=== PATIENT | female | born 1960 | race Caucasian/White ===

== ENCOUNTER 2018-04-09 12:26 | Outpatient (CLI) | payer MEDICAID ==
[~2018-04-09 12:26] MED LIST: BAC10T PO; CARI350T PO; HYDR-4383 PO; HYDR2TAB28 PO; LISI40TA4 PO; METH-603 PO; MUCIN PO; OMEP20TA23 PO; RISP0.2555 PO
[2018-04-09 13:42] LABS: BASOPHILS # (AUTO) 0.1 X10'3 (0-0.2); BASOPHILS % (AUTO) 1.3 % (0-1); EOSINOPHILS # (AUTO) 0.2 X10'3 (0-0.9); EOSINOPHILS % (AUTO) 2.7 % (0-6); HEMATOCRIT 38.6 % (35.0-45.0); HEMOGLOBIN 12.4 g/dl (12.0-16.0); LYMPHOCYTES # (AUTO) 1.4 X10'3 (1.1-4.8); LYMPHOCYTES % (AUTO) 19.9 % (21-51); MEAN CORPUSCULAR HEMOGLOBIN 27.3 PG (27.0-31.0); MEAN CORPUSCULAR HGB CONC 32.2 % (33.0-36.5); MEAN CORPUSCULAR VOLUME 84.8 FL (78-98); MONOCYTES # (AUTO) 0.4 X10'3 (0-0.9); MONOCYTES % (AUTO) 6.3 % (2-12); NEUTROPHILS # (AUTO) 4.8 X10'3 (1.8-7.7); NEUTROPHILS % (AUTO) 69.8 % (42-75); RED BLOOD COUNT 4.55 X10'6 (4.20-5.60); RED CELL DISTRIBUTION WIDTH 13.5 % (11.5-14.5); WHITE BLOOD COUNT 6.8 X10'3 (4.5-11.0)
[2018-04-09 14:04] LABS: PARTIAL THROMBOPLASTIN TIME 31 SECONDS (22-32); PROTHROMBIN TIME 10.2 SECONDS (9.0-12.0)
[2018-04-09 14:12] LABS: CLARITY,URINE CLEAR (Clear); COLOR,URINE STRAW (Yellow); GLUCOSE, URINE NEGATIVE (Neg); KETONES,URINE NEGATIVE (Neg); LEUKOCYTE ESTERASE ,URINE NEGATIVE (Neg); NITRITES, URINE NEGATIVE (Neg); OCCULT BLOOD,URINE NEGATIVE (Neg); PROTEIN,URINE NEGATIVE (Neg); UROBILINOGEN,URINE 0.2 E.U/dL (0.2-1.0)
[2018-04-09 14:13] LABS: UA COLLECTION TYPE NON-SPECIFIED
[2018-04-09 14:16] LABS: PLATELET COUNT 270 X10'3 (140-440)
[2018-04-09 14:17] LABS: LARGE PLATELETS FEW; PLATELET ESTIMATE NORMAL
[2018-04-10] MEDS ORDERED: METH-603 PO (11:19)
[2018-04-10] MEDS ORDERED: LISI-600 PO (11:19)
[2018-04-10] MEDS ORDERED: tumeric PO (11:19)
[2018-04-10] MEDS ORDERED: AMIT10TA6 PO (11:19)
[2018-04-10] MEDS ORDERED: CLON-527 PO (11:19)
[2018-04-10] MEDS ORDERED: CHOL10002 PO (11:19)
== END 2018-04-09 23:59 | disposition home or self-care (01) ==
LOC: LAB 12:26
PROVIDERS: ATTEND Nurse Practitioner Family
DX: Z01.818 Encounter for other preprocedural examination (principal); M41.20 Other idiopathic scoliosis, site unspecified; R56.9 Unspecified convulsions; I10 Essential (primary) hypertension; Z87.891 Personal history of nicotine dependence
CPT/HCPCS: 36415; 81003; 85025; 85610; 85651; 85730; 86140; 86900; 86901

== ENCOUNTER 2018-04-10 10:33 | Day surgery (SDC) | payer MEDICAID ==
[2018-04-09 14:38] LABS: ALBUMIN 3.9 G/DL (3.4-5.0); ANION GAP 8 (8-16); BILIRUBIN,DIRECT 0.1 MG/DL (0-0.3); BILIRUBIN,TOTAL 0.4 MG/DL (0.1-1.0); BLOOD UREA NITROGEN 20 MG/DL (7-18); CALCIUM 9.4 MG/DL (8.5-10.1); CHLORIDE 97 MMOL/L (99-107); CREATININE 1.05 MG/DL (0.40-0.90); GLUCOSE 86 MG/DL (70-104); POTASSIUM 4.5 MMOL/L (3.5-5.1); SODIUM 134 MMOL/L (135-145); TOTAL CARBON DIOXIDE 29.1 MMOL/L (24-32); TOTAL PROTEIN 8.6 G/DL (6.4-8.2); eGFR 54 ML/MIN
[2018-04-09 14:39] LABS: ALANINE AMINOTRANSFERASE 31 U/L (12-78); ALBUMIN/GLOBULIN RATIO 0.8 (1.1-1.5); ALKALINE PHOSPHATASE 81 IU/L (46-116); ASPARTATE AMINO TRANSFERASE 36 U/L (10-37)
[~2018-04-10] VITALS: Ht 167.6 cm; Wt 82.7 kg
[2018-04-10] VITALS (11 sets, daily range): BP systolic 94–118; BP diastolic 58–83
[2018-04-10] MEDS ORDERED: nitroGLYCERIN 0.4mg SUBLingual tab SL PRN (10:50)
[2018-04-10] MEDS ORDERED: diphenhydrAMINE 25mg capsule PO PRN (10:55)
[2018-04-10] MEDS ORDERED: LORazepam 0.5 MG tablet PO PRN (10:55)
[2018-04-10] MEDS ORDERED: CLON-527 PO (11:19)
[2018-04-10] MEDS ORDERED: AMIT10TA6 PO (11:19)
[2018-04-10] MEDS ORDERED: LISI-600 PO (11:19)
[2018-04-10] MEDS ORDERED: METH-603 PO (11:19)
[2018-04-10] MEDS ORDERED: tumeric PO (11:19)
[2018-04-10] MEDS ORDERED: CHOL10002 PO (11:19)
[2018-04-10] MEDS: normal saline 1000ml 1,000 ML IV SCH ×2 (11:32→16:34)
[2018-04-10] MEDS ORDERED: LIDOcaine 1% (10mg/ml)w/preservative injection 20ml MDV ONE (14:37)
[2018-04-10] MEDS ORDERED: midazolam 2 mg/2 ml injection ONE ×2 (14:37→15:20)
[2018-04-10] MEDS ORDERED: iohexol 350MG/ML 100ml bottle IV ONE (14:37)
[2018-04-10] MEDS ORDERED: iohexol 350 MG/ML 50ML vial IV ONE (14:37)
[2018-04-10] MEDS ORDERED: fentaNYL/PF 50MCG/1 ML 2ML syringe ONE ×2 (14:37→15:20)
[2018-04-10] MEDS ORDERED: proCHLORperazine 10 MG/2 ml inj ONE (14:59)
[2018-04-10] MEDS ORDERED: OXAZEpam 15mg capsule PO PRN (16:15)
[2018-04-10] MEDS ORDERED: HYDROcodone/acetaminophen 10/325mg tab PO PRN (16:15)
[2018-04-10] MEDS ORDERED: HYDROcodone/acetaminophen 5mg/325mg tablet PO PRN (16:15)
[2018-04-10] MEDS ORDERED: proCHLORperazine 10 MG/2 ml inj IV PRN (16:15)
[2018-04-10] MEDS ORDERED: ondansetron/PF 4mg/2ml inj IV PRN (16:15)
== END 2018-04-10 20:17 | disposition home or self-care (01) ==
LOC: SSTAY O 10:33
PROVIDERS: ATTEND Internal Medicine Cardiovascular Disease
DX: I25.10 Atherosclerotic heart disease of native coronary artery without angina pectoris (principal); I10 Essential (primary) hypertension; E78.5 Hyperlipidemia, unspecified; G43.909 Migraine, unspecified, not intractable, without status migrainosus; J44.9 Chronic obstructive pulmonary disease, unspecified; K21.9 Gastro-esophageal reflux disease without esophagitis; M19.90 Unspecified osteoarthritis, unspecified site; F32.89 Other specified depressive episodes; F41.8 Other specified anxiety disorders; F19.21 Other psychoactive substance dependence, in remission; Z79.891 Long term (current) use of opiate analgesic; Z98.86 Personal history of breast implant removal; Z86.2 Personal history of diseases of the blood and blood-forming organs and certain disorders involving the immune mechanism; Z88.5 Allergy status to narcotic agent; Z87.891 Personal history of nicotine dependence; Z86.69 Personal history of other diseases of the nervous system and sense organs; Z86.19 Personal history of other infectious and parasitic diseases; Z90.49 Acquired absence of other specified parts of digestive tract; Z98.51 Tubal ligation status; Z98.890 Other specified postprocedural states; Z79.899 Other long term (current) drug therapy
CPT/HCPCS: 36415; 71046; 80053; 82248; 93005; 93458; 99152; 99153; A6257; C1760; J0780; J1644; J2001; J2250; J3010; J7030; Q0163; Q9967; A4620; C1769

== ENCOUNTER 2018-04-15 01:53 | Emergency (ER) | payer MEDICAID ==
[~2018-04-15] VITALS: Ht 167.6 cm; Wt 81.0 kg
[~2018-04-15 01:53] MED LIST changes: +AMIT10TA6 PO; -CARI350T PO; +CHOL10002 PO; +CLON-527 PO; -HYDR-4383 PO; -HYDR2TAB28 PO; +LISI-600 PO; -LISI40TA4 PO; -RISP0.2555 PO; +tumeric PO
[2018-04-15] MEDS ORDERED: proCHLORperazine 10 MG/2 ml inj IM ONE (03:15)
[2018-04-15] MEDS ORDERED: acetaminophen 325mg tablet PO ONE (03:15)
[2018-04-15] MEDS ORDERED: diphenhydrAMINE 50 mg/ml inj IM ONE (03:15)
[2018-04-15] MEDS ORDERED: ketorolac trometh inj. 60 MG/2 ML VIAL IM ONE (03:15)
[2018-04-15] MEDS ORDERED: ondansetron 4mg rapidly disintigrating tab PO ONE (03:15)
[2018-04-15 03:36] VITALS: BP 133/78
== END 2018-04-15 04:20 | disposition home or self-care (01) ==
LOC: ER 01:54
DX: G43.909 Migraine, unspecified, not intractable, without status migrainosus (principal); I10 Essential (primary) hypertension; E11.9 Type 2 diabetes mellitus without complications; G89.29 Other chronic pain; F11.90 Opioid use, unspecified, uncomplicated; Z86.14 Personal history of Methicillin resistant Staphylococcus aureus infection; Z98.890 Other specified postprocedural states; Z88.5 Allergy status to narcotic agent; Z79.899 Other long term (current) drug therapy
CPT/HCPCS: 96372; 99284; J0780; J1200; J1885

== ENCOUNTER 2022-04-18 06:31 | Day surgery (SDC) | payer MEDICAID ==
[~2022-04-18] VITALS: Ht 168.9 cm; Wt 95.5 kg
[~2022-04-18 06:31] MED LIST changes: -LISI-600 PO; +LISI20TA28 PO
[2022-04-18 06:40] VITALS: BP 131/82
[2022-04-18] MEDS ORDERED: CLON-528 PO (06:57)
[2022-04-18] MEDS ORDERED: OMEP40CA21 PO (06:58)
[2022-04-18] MEDS ORDERED: METH-603 PO (06:59)
[2022-04-18] MEDS ORDERED: diphenhydrAMINE 50 mg/ml inj ONE (07:13)
[2022-04-18] MEDS ORDERED: LIDOcaine Viscous 15ml cup ONE (07:13)
[2022-04-18] MEDS ORDERED: MIDAZolam 1 MG/ML 5ML VIAL ONE (07:13)
[2022-04-18] MEDS ORDERED: fentaNYL/PF 50MCG/1 ML 2ML syringe ONE (07:13)
[2022-04-18 08:21] VITALS: BP 154/90
[2022-04-18 08:31] VITALS: BP 148/94
[2022-04-18 08:41] VITALS: BP 152/88
== END 2022-04-18 09:10 | disposition home or self-care (01) ==
LOC: GI LAB 06:31
PROVIDERS: ATTEND Internal Medicine Gastroenterology
DX: K29.50 Unspecified chronic gastritis without bleeding (principal); K29.80 Duodenitis without bleeding
CPT/HCPCS: 43239; 99152; J1200; J2250; J3010; J7030; Z7512; 99153; A4620

== ENCOUNTER 2024-02-02 21:33 | Emergency (ER) | payer MEDICAID ==
[~2024-02-02] VITALS: Ht 170.2 cm; Wt 77.3 kg
[~2024-02-02 21:33] MED LIST changes: -AMIT10TA6 PO; -BAC10T PO; -CHOL10002 PO; -CLON-527 PO; +CLON0.5T2 PO; -MUCIN PO; -OMEP20TA23 PO; +OMEP40CA21 PO; -tumeric PO
[2024-02-03] MEDS: ketorolac trometh 15mg/ml vial 15 MG/ML ML IV ONE (01:29)
[2024-02-03] MEDS: morphine 4 MG/ML inj SYRINge IV ONE (01:33)
[2024-02-03 01:34] LABS: BASOPHILS % (AUTO) 0.3 % (0-1); EOSINOPHILS % (AUTO) 0 % (0-6); HEMATOCRIT 23.6 % (35.0-45.0); HEMOGLOBIN 7.3 g/dl (12.0-16.0); LYMPHOCYTES # (AUTO) 0.5 X10'3 (1.1-4.8); LYMPHOCYTES % (AUTO) 7.2 % (21-51); MEAN CORPUSCULAR HEMOGLOBIN 21.5 PG (27.0-31.0); MEAN CORPUSCULAR HGB CONC 30.9 g/dL (33.0-36.5); MEAN CORPUSCULAR VOLUME 69.6 FL (78-98); MEAN PLATELET VOLUME 8.1 FL (7.4-10.4); MONOCYTES # (AUTO) 0.5 X10'3 (0-0.9); MONOCYTES % (AUTO) 6.6 % (2-12); NEUTROPHILS # (AUTO) 6.3 X10'3 (1.8-7.7); NEUTROPHILS % (AUTO) 85.9 % (42-75); PLATELET COUNT 318 X10'3 (140-440); RED BLOOD COUNT 3.39 X10'6 (4.20-5.60); RED CELL DISTRIBUTION WIDTH 17.6 % (11.5-14.5); WHITE BLOOD COUNT 7.4 X10'3 (4.5-11.0)
[2024-02-03] MEDS: normal saline 1000ML IV soln IVB ONE (01:36)
[2024-02-03] MEDS: proCHLORperazine 10 MG/2 ml inj IV ONE (01:36)
[2024-02-03 01:45] LABS: ALBUMIN 2.7 G/DL (3.4-5.0); ANION GAP 8 (8-16); BLOOD UREA NITROGEN 18 MG/DL (7-18); BUN/CREATININE RATIO 20.2 (10.0-20.0); C-REACTIVE PROTEIN 3.72 MG/DL (0.0-0.5); CALCIUM 8.4 MG/DL (8.5-10.1); CHLORIDE 98 MMOL/L (99-107); CREATININE 0.89 MG/DL (0.40-0.90); GLUCOSE 122 MG/DL (70-104); LIPASE 17 U/L (16-77); MAGNESIUM 1.5 MG/DL (1.5-2.4); POTASSIUM 3.6 MMOL/L (3.5-5.1); SODIUM 135 MMOL/L (135-145); TOTAL CARBON DIOXIDE 29.2 MMOL/L (24-32); eCRCL 63 ML/MIN; eGFR 64 ML/MIN
[2024-02-03 01:52] LABS: ETHANOL < 10 MG/DL (<10)
[2024-02-03 02:55] LABS: ANISOCYTOSIS 1+; MICROCYTOSIS 2+; PLATELET ESTIMATE NORMAL; TOTAL CELLS COUNTED 100
[2024-02-03 02:56] LABS: ELLIPTOCYTES FEW; STOMATOCYTES FEW
[2024-02-03] MEDS: dexamethasone 4mg tablet PO ONE (03:03)
[2024-02-03 03:49] LABS: URINE AMPHETAMINE SCREEN NEGATIVE (Neg); URINE BARBITUATE SCREEN NEGATIVE (Neg); URINE BENZODIAZEPINES SCREEN POSITIVE (Neg); URINE CANNABINOID SCREEN NEGATIVE (Neg); URINE COCAINE SCREEN NEGATIVE (Neg); URINE METHADONE SCREEN POSITIVE (Neg); URINE OPIATE SCREEN POSITIVE (Neg); URINE PHENCYCLIDINE SCREEN NEGATIVE (Neg)
[2024-02-03 04:02] LABS: BILIRUBIN,URINE NEGATIVE (Neg); CLARITY,URINE CLEAR (Clear); COLOR,URINE YELLOW (Yellow); GLUCOSE, URINE NEGATIVE (Neg); KETONES,URINE NEGATIVE (Neg); LEUKOCYTE ESTERASE ,URINE NEGATIVE (Neg); NITRITES, URINE NEGATIVE (Neg); OCCULT BLOOD,URINE NEGATIVE (Neg); PH,URINE 6.5 (4.8-8.0); PROTEIN,URINE NEGATIVE (Neg); UROBILINOGEN,URINE 0.2 E.U/dL (0.2-1.0)
[2024-02-03 04:12] LABS: UA COLLECTION TYPE CLN CATCH MIDSTREAM
[2024-02-03 06:00] VITALS: TEMP 98.2
[2024-02-03] MEDS ORDERED: METR-159 PO (06:04)
[2024-02-03] MEDS: metroNIDAZOLE 500mg tablet PO ONE (06:22)
[2024-02-03] MEDS: piperacillin/tazo 4.5gm/100ml 100 ML IV SCH (06:35)
[2024-02-03 06:58] VITALS: BP 138/83; PULSE 74; RESP 18; O2SAT 92
== END 2024-02-03 07:04 | disposition home or self-care (01) ==
LOC: ER 21:34
DX: G43.909 Migraine, unspecified, not intractable, without status migrainosus (principal); K52.9 Noninfective gastroenteritis and colitis, unspecified; D64.9 Anemia, unspecified; I10 Essential (primary) hypertension; E11.9 Type 2 diabetes mellitus without complications; G89.29 Other chronic pain; F32.A Depression, unspecified; R10.9 Unspecified abdominal pain; Z88.5 Allergy status to narcotic agent; Z79.899 Other long term (current) drug therapy
CPT/HCPCS: 36415; 74176; 80048; 80305; 80320; 81003; 83690; 83735; 84145; 85007; 85025; 86140; 96361; 96374; 96375; 99285; J0780; J1885; J2270; J7030; A6446; A6449

== ENCOUNTER 2024-02-06 21:19 | Emergency (ER) | payer MEDICAID ==
[~2024-02-06] VITALS: Ht 167.6 cm; Wt 81.5 kg
[~2024-02-06 21:19] MED LIST changes: +METR-159 PO
[2024-02-06 22:25] LABS: BASOPHILS # (AUTO) 0.1 X10'3 (0-0.2); BASOPHILS % (AUTO) 0.8 % (0-1); EOSINOPHILS % (AUTO) 0.1 % (0-6); HEMATOCRIT 26.8 % (35.0-45.0); HEMOGLOBIN 8.1 g/dl (12.0-16.0); LYMPHOCYTES # (AUTO) 1.1 X10'3 (1.1-4.8); LYMPHOCYTES % (AUTO) 9.6 % (21-51); MEAN CORPUSCULAR HEMOGLOBIN 21.2 PG (27.0-31.0); MEAN CORPUSCULAR HGB CONC 30.3 g/dL (33.0-36.5); MEAN CORPUSCULAR VOLUME 70.1 FL (78-98); MONOCYTES # (AUTO) 0.7 X10'3 (0-0.9); MONOCYTES % (AUTO) 6.4 % (2-12); NEUTROPHILS # (AUTO) 9.4 X10'3 (1.8-7.7); NEUTROPHILS % (AUTO) 83.1 % (42-75); PLATELET COUNT 420 X10'3 (140-440); RED BLOOD COUNT 3.83 X10'6 (4.20-5.60); RED CELL DISTRIBUTION WIDTH 18.4 % (11.5-14.5); WHITE BLOOD COUNT 11.2 X10'3 (4.5-11.0)
[2024-02-06 22:35] LABS: ALBUMIN 2.9 G/DL (3.4-5.0); ANION GAP 7 (8-16); BLOOD UREA NITROGEN 10 MG/DL (7-18); BUN/CREATININE RATIO 13.5 (10.0-20.0); CALCIUM 8.9 MG/DL (8.5-10.1); CHLORIDE 103 MMOL/L (99-107); CREATININE 0.74 MG/DL (0.40-0.90); GLUCOSE 108 MG/DL (70-104); POTASSIUM 3.9 MMOL/L (3.5-5.1); SODIUM 138 MMOL/L (135-145); TOTAL CARBON DIOXIDE 27.8 MMOL/L (24-32); eCRCL 73 ML/MIN; eGFR 79 ML/MIN
[2024-02-07] MEDS: diphenhydrAMINE 50 mg/ml inj IV ONE (00:56)
[2024-02-07] MEDS: metoclopramide 5 mg/ml inj IV ONE (00:56)
[2024-02-07] MEDS: normal saline 1000ml 1,000 ML IV ONE (00:56)
[2024-02-07] MEDS: dicyclomine 10 MG capsule PO ONE (00:57)
[2024-02-07] MEDS: LIDOcaine 2% Viscous 15ml cup MM ONE (01:56)
[2024-02-07] MEDS: mag hydrox/Alum hydrox/simeth 30ml oral suspension PO ONE (01:56)
[2024-02-07] MEDS: proCHLORperazine 10 MG/2 ml inj IV ONE (02:05)
[2024-02-07] MEDS: proCHLORperazine 10 MG/2 ml inj IM ONE (02:20)
[2024-02-07] MEDS ORDERED: LIDO15SO9 PO (02:39)
[2024-02-07] MEDS ORDERED: ONDA-245 PO (02:39)
[2024-02-07] MEDS: LORazepam 1 MG tablet PO ONE (02:44)
[2024-02-07 02:55] VITALS: BP 122/10; PULSE 88; RESP 14; TEMP 98.4; O2SAT 95
== END 2024-02-07 02:56 | disposition home or self-care (01) ==
LOC: ER 21:20
DX: R10.13 Epigastric pain (principal); I10 Essential (primary) hypertension; E11.9 Type 2 diabetes mellitus without complications; G89.29 Other chronic pain; M54.9 Dorsalgia, unspecified; F32.A Depression, unspecified; G43.909 Migraine, unspecified, not intractable, without status migrainosus; Z88.5 Allergy status to narcotic agent; Z79.899 Other long term (current) drug therapy
CPT/HCPCS: 80048; 85025; 96361; 96374; 96375; 99285; J1200; J2765; J7030; A6449

== ENCOUNTER 2024-02-10 00:53 | Emergency (ER) | payer MEDICAID ==
[~2024-02-10] VITALS: Ht 167.6 cm; Wt 72.7 kg
[~2024-02-10 00:53] MED LIST changes: +LIDO15SO9 PO; +ONDA-245 PO
[2024-02-10] MEDS: LIDOcaine 1% W/epiNEPHrine 1:100,000 20ml vial IJ ONE (02:05)
--- NOTE | 2024-02-10 02:50 | NUR ---
at [facility] for laceration repair/ Varicose vein
[2024-02-10 03:11] VITALS: BP 116/67; PULSE 88; RESP 16; TEMP 98; O2SAT 99
== END 2024-02-10 03:19 | disposition home or self-care (01) ==
LOC: ER 00:53
DX: S81.812A Laceration without foreign body, left lower leg, initial encounter (principal); G43.909 Migraine, unspecified, not intractable, without status migrainosus; I10 Essential (primary) hypertension; E11.9 Type 2 diabetes mellitus without complications; Z88.5 Allergy status to narcotic agent; Z79.899 Other long term (current) drug therapy; X58.XXXA Exposure to other specified factors, initial encounter; Y93.89 Activity, other specified; Y92.89 Other specified places as the place of occurrence of the external cause; Y99.8 Other external cause status
CPT/HCPCS: 12001; 99283

== ENCOUNTER 2024-03-05 14:47 | Emergency (ER) | payer MEDICAID ==
[~2024-03-05] VITALS: Ht 167.6 cm; Wt 72.7 kg
[~2024-03-05 14:47] MED LIST changes: -METR-159 PO
[2024-03-05 15:17] VITALS: BP 134/53; PULSE 86; RESP 15; TEMP 97.3; O2SAT 99
[2024-03-05] MEDS: DOXYCYCLINE 100MG CAPSULE PO STA (15:50)
[2024-03-05] MEDS ORDERED: DOXY-460 PO (16:36)
== END 2024-03-05 16:51 | disposition home or self-care (01) ==
LOC: ER 14:47
DX: L03.116 Cellulitis of left lower limb (principal); L02.416 Cutaneous abscess of left lower limb; G43.909 Migraine, unspecified, not intractable, without status migrainosus; I10 Essential (primary) hypertension; E11.9 Type 2 diabetes mellitus without complications; Z88.5 Allergy status to narcotic agent; Z79.899 Other long term (current) drug therapy
CPT/HCPCS: 99283

== ENCOUNTER 2024-03-28 11:51 | Emergency (ER) | payer MEDICAID ==
[~2024-03-28] VITALS: Ht 167.6 cm; Wt 77.2 kg
[2024-03-28 11:53] VITALS: TEMP 98
[2024-03-28] MEDS ORDERED: morphine 2 MG/ML inj. syringe IV ONE (12:55)
[2024-03-28] MEDS: morphine 2 MG/ML inj. syringe IM ONE (13:13)
[2024-03-28 14:01] LABS: BASOPHILS # (AUTO) 0.1 X10'3 (0-0.2); EOSINOPHILS # (AUTO) 0.2 X10'3 (0-0.9); EOSINOPHILS % (AUTO) 3.4 % (0-6); HEMATOCRIT 26.3 % (35.0-45.0); HEMOGLOBIN 7.8 g/dl (12.0-16.0); LYMPHOCYTES # (AUTO) 1.2 X10'3 (1.1-4.8); LYMPHOCYTES % (AUTO) 23.1 % (21-51); MEAN CORPUSCULAR HEMOGLOBIN 20.5 PG (27.0-31.0); MEAN CORPUSCULAR HGB CONC 29.8 g/dL (33.0-36.5); MEAN CORPUSCULAR VOLUME 68.8 FL (78-98); MEAN PLATELET VOLUME 8.5 FL (7.4-10.4); MONOCYTES # (AUTO) 0.5 X10'3 (0-0.9); NEUTROPHILS # (AUTO) 3.2 X10'3 (1.8-7.7); NEUTROPHILS % (AUTO) 62.5 % (42-75); PLATELET COUNT 288 X10'3 (140-440); RED BLOOD COUNT 3.83 X10'6 (4.20-5.60); RED CELL DISTRIBUTION WIDTH 17.5 % (11.5-14.5); WHITE BLOOD COUNT 5.2 X10'3 (4.5-11.0)
[2024-03-28 14:18] LABS: ALANINE AMINOTRANSFERASE 17 U/L (12-78); ALBUMIN 2.9 G/DL (3.4-5.0); ALBUMIN/GLOBULIN RATIO 0.7 (1.1-1.5); ALKALINE PHOSPHATASE 94 IU/L (46-116); ANION GAP 1 (8-16); ASPARTATE AMINO TRANSFERASE 19 U/L (10-37); BILIRUBIN,TOTAL 0.2 MG/DL (0.1-1.0); BLOOD UREA NITROGEN 22 MG/DL (7-18); BUN/CREATININE RATIO 25.9 (10.0-20.0); CALCIUM 8.4 MG/DL (8.5-10.1); CHLORIDE 101 MMOL/L (99-107); CREATININE 0.85 MG/DL (0.40-0.90); GLUCOSE 111 MG/DL (70-104); SODIUM 135 MMOL/L (135-145); TOTAL PROTEIN 7.2 G/DL (6.4-8.2); eCRCL 63 ML/MIN; eGFR 67 ML/MIN
[2024-03-28 14:20] LABS: HYPOCHROMASIA 2+; PLATELET ESTIMATE NORMAL
[2024-03-28 14:21] LABS: ANISOCYTOSIS 1+; ELLIPTOCYTES FEW; MICROCYTOSIS 2+
[2024-03-28] MEDS ORDERED: HYDR-3965 PO (14:28)
[2024-03-28 14:32] VITALS: BP 118/69; PULSE 69; RESP 18; O2SAT 98
[2024-03-28 14:35] LABS: D-DIMER 0.91 MG/L FEU (0-0.50)
[2024-03-28] MEDS ORDERED: SULF1TAB49 PO ×2 (14:42→14:44)
== END 2024-03-28 15:00 | disposition home or self-care (01) ==
LOC: ER 11:52
DX: L03.116 Cellulitis of left lower limb (principal); J44.9 Chronic obstructive pulmonary disease, unspecified; I10 Essential (primary) hypertension; E11.9 Type 2 diabetes mellitus without complications; G43.909 Migraine, unspecified, not intractable, without status migrainosus; F11.90 Opioid use, unspecified, uncomplicated; G89.29 Other chronic pain; F32.A Depression, unspecified; Z88.8 Allergy status to other drugs, medicaments and biological substances; Z79.899 Other long term (current) drug therapy
CPT/HCPCS: 36415; 80053; 83605; 84145; 85008; 85025; 85379; 93971; 96372; 99285; J2270; A6449

== ENCOUNTER 2024-06-14 10:44 | Emergency (ER) | payer MEDICAID ==
[~2024-06-14] VITALS: Ht 167.6 cm; Wt 81.4 kg
[2024-06-14 11:55] VITALS: TEMP 98
[2024-06-14 12:11] LABS: BASOPHILS # (AUTO) 0.1 X10'3 (0-0.2); BASOPHILS % (AUTO) 1.7 % (0-1); EOSINOPHILS # (AUTO) 0.2 X10'3 (0-0.9); EOSINOPHILS % (AUTO) 3.7 % (0-6); HEMATOCRIT 23.4 % (35.0-45.0); LYMPHOCYTES % (AUTO) 18.5 % (21-51); MEAN CORPUSCULAR HGB CONC 29.8 g/dL (33.0-36.5); MEAN CORPUSCULAR VOLUME 67.2 FL (78-98); MEAN PLATELET VOLUME 7.8 FL (7.4-10.4); MONOCYTES # (AUTO) 0.6 X10'3 (0-0.9); MONOCYTES % (AUTO) 10.1 % (2-12); NEUTROPHILS # (AUTO) 3.7 X10'3 (1.8-7.7); PLATELET COUNT 350 X10'3 (140-440); RED BLOOD COUNT 3.48 X10'6 (4.20-5.60); RED CELL DISTRIBUTION WIDTH 19.1 % (11.5-14.5); WHITE BLOOD COUNT 5.6 X10'3 (4.5-11.0)
[2024-06-14 12:23] LABS: APTT 22 SECONDS (22-32); INR 1.1 INR; PROTHROMBIN TIME 11.3 SECONDS (9.0-12.0)
[2024-06-14] MEDS ORDERED: AMOX-117 PO (14:20)
[2024-06-14] MEDS ORDERED: FERR-121 PO (14:20)
[2024-06-14 16:29] LABS: % IRON SATURATION 3 % (11-46); IRON 12 UG/DL (49-151); TOTAL IRON BINDING CAPACITY 419 UG/DL (259-388)
[2024-06-14] MEDS: amox tr/potassium clavulanate 875/125mg TAB PO ONE (20:42)
[2024-06-14 21:23] VITALS: BP 103/79; PULSE 80; RESP 16; O2SAT 98
== END 2024-06-14 21:26 | disposition home or self-care (01) ==
LOC: ER 10:44
DX: D64.89 Other specified anemias (principal); G43.909 Migraine, unspecified, not intractable, without status migrainosus; I10 Essential (primary) hypertension; E11.9 Type 2 diabetes mellitus without complications; R79.1 Abnormal coagulation profile; Z88.5 Allergy status to narcotic agent
CPT/HCPCS: 36415; 36430; 70450; 83540; 83550; 85025; 85610; 85730; 86885; 86900; 86901; 86920; 93005; 99285; J7040; P9016

== ENCOUNTER 2024-07-03 10:20 | Emergency (ER) | payer MEDICAID ==
[~2024-07-03] VITALS: Ht 167.6 cm; Wt 81.3 kg
[~2024-07-03 10:20] MED LIST changes: +FERR-121 PO
[2024-07-03 10:25] VITALS: BP 121/46; PULSE 77; RESP 16; O2SAT 97
[2024-07-03 12:38] VITALS: TEMP 97.9
== END 2024-07-03 12:42 | disposition home or self-care (01) ==
LOC: ER 10:20
DX: S01.81XA Laceration without foreign body of other part of head, initial encounter (principal); E11.9 Type 2 diabetes mellitus without complications; G43.909 Migraine, unspecified, not intractable, without status migrainosus; I10 Essential (primary) hypertension; F32.A Depression, unspecified; Z87.891 Personal history of nicotine dependence; Z88.5 Allergy status to narcotic agent; W01.198A Fall on same level from slipping, tripping and stumbling with subsequent striking against other object, initial encounter; Y93.89 Activity, other specified; Y92.89 Other specified places as the place of occurrence of the external cause; Y99.8 Other external cause status
CPT/HCPCS: 70450; 70486; 99284

== ENCOUNTER 2024-07-18 10:03 | Emergency (ER) | payer MEDICAID ==
[~2024-07-18] VITALS: Ht 167.6 cm; Wt 80.0 kg
[2024-07-18 11:14] VITALS: BP 127/71; PULSE 60; RESP 18; TEMP 96; O2SAT 95
== END 2024-07-18 11:55 | disposition home or self-care (01) ==
LOC: ER 10:04
DX: E11.9 Type 2 diabetes mellitus without complications (principal); I10 Essential (primary) hypertension; G43.909 Migraine, unspecified, not intractable, without status migrainosus; G89.29 Other chronic pain; F32.A Depression, unspecified; Z88.5 Allergy status to narcotic agent; Z79.899 Other long term (current) drug therapy; F11.90 Opioid use, unspecified, uncomplicated
CPT/HCPCS: 99283

== ENCOUNTER 2024-09-26 07:01 | Emergency (ER) | payer MEDICAID ==
[~2024-09-26] VITALS: Ht 170.2 cm; Wt 76.8 kg
[2024-09-26 07:03] VITALS: TEMP 98.2
[2024-09-26] MEDS: fentaNYL/PF 50MCG/1 ML 2ML syringe IV PRN (07:24)
[2024-09-26] MEDS ORDERED: BUPIVAcaine/PF 2.5 mg/ml (0.25%) 30ml vial IJ ONE (07:55)
[2024-09-26] MEDS: BUPIVAcaine/PF 2.5mg/ml (0.25%) 10ml vial IJ ONE (08:54)
[2024-09-26 10:04] VITALS: RESP 17; O2SAT 100
[2024-09-26] MEDS: ketorolac trometh 15mg/ml vial 15 MG/ML ML IV ONE (10:05)
[2024-09-26] MEDS: propofol 10mg/ml 20ml vial IV ONE ×2 (10:06→10:08)
[2024-09-26] MEDS: oxyCODONE IR 5mg (immed. release) tablet PO ONE (11:14)
[2024-09-26] MEDS ORDERED: OXYC-658 PO (11:33)
[2024-09-26 12:09] VITALS: BP 135/76; PULSE 81; O2SAT 96
[2024-09-26 12:14] VITALS: RESP 16
== END 2024-09-26 12:39 | disposition home or self-care (01) ==
LOC: ER 07:02
DX: S52.512A Displaced fracture of left radial styloid process, initial encounter for closed fracture (principal); I10 Essential (primary) hypertension; G89.29 Other chronic pain; M54.9 Dorsalgia, unspecified; E11.9 Type 2 diabetes mellitus without complications; G43.909 Migraine, unspecified, not intractable, without status migrainosus; F32.A Depression, unspecified; Z88.5 Allergy status to narcotic agent; Z79.899 Other long term (current) drug therapy; W18.39XA Other fall on same level, initial encounter; Y93.89 Activity, other specified; Y92.89 Other specified places as the place of occurrence of the external cause; Y99.8 Other external cause status
CPT/HCPCS: 25605; 73090; 73100; 73110; 73130; 96374; 99285; J1885; J3010; 94760; A4565; A4620; A6449

== ENCOUNTER 2024-10-06 09:25 | Emergency (ER) | payer MEDICAID ==
[~2024-10-06] VITALS: Ht 170.2 cm; Wt 74.8 kg
--- NOTE | 2024-10-06 09:38 | Physician Documentation ---
History of Present Illness ~ Chief Complaint: Arm Pain Stated Complaint: HAND PAIN Time Seen by MD: 09:43 Primary Medical Doctor: Aleksandra Sung [facility] in [facility] 64-year-old female presents to the ED after fracturing her left wrist proximally 10 days ago. He has the the splint that was placed only partially remaining at this time. And in a pain. He was not been able to follow up with the orthopedic surgeon. States she does have a appointment in in two weeks. Says she was not here for pain management however she was worried about her splint coming off. Day of Onset: Oct 06, 2024 Tetanus within 5 years: Yes Medication Reconciliation Allergies: Coded Allergies: codeine (Verified Allergy, Unknown, 07/18/24) Scheduled Clonazepam (Klonopin), 1 TAB PO QHS, (Reported) Ferrous Sulfate (Iron), 1 TAB PO Q12H Lidocaine HCl (Lidocaine HCl Viscous), 5 ML PO Q8H Lisinopril (Lisinopril), 1 TAB PO DAILY, (Reported) Methadone Hcl* (Dolophine*), 130 MG PO DA, (Reported) Omeprazole (Prilosec), 1 CAP PO DAILY, (Reported) Ondansetron 8mg ODT (Ondansetron Odt), 1 TAB PO Q6H Scheduled PRN Hydrocodone Bit/Acetaminophen 5/325 MG ([place] 5/325 MG), 1 TAB PO Q6H PRN for pain Discontinued Medications Oxycodone Hcl IR* (Oxycodone IR*), 1 TAB PO TID PRN PRN for pain Discontinued Reason: Auto Discontinued Past Medical History Past Medical History: Headache, Migraine, Hypertension, Diabetes, Chronic Pain, MRSA Abscess, Depression Past Surgical History: other Alcohol Use: None Drug Use: none, heroin Lives In: Home Physical Exam Physical Exam General: Alert, no apparent distress. Extremities: Normal range of motion, no deformity. partially attaxched left wrist splint Neurologic: Oriented x4. Psychiatric: Normal mood and affect. Skin: Normal color, warm and dry. No edema, no ecchymosis. Progress Results/Orders Results/Orders Orders - ÁNGEL AZAR LOCK MASTER Ortho Orders (10/06/24 ) Vital Signs 10/06/24 10/06/24 09:34 10:45 Temp 97.9 98.4 Pulse 85 84 Resp 18 18 B/P (MAP) 146/77 146/86 Pulse Ox 98 99 Medical Decision Making Findings A new splint was placed on patient's left arm. CSM is intact. Patient continues to complain of pain. We will show send her a short dose of [place] was in preparation for following up with Dr. Rey sung the orthopedic surgeon. Departure Disposition: HOME / SELF CARE / HOMELESS Impression: Primary Impression: Wrist fracture, left Condition: Stable Discharge Instructions: Extremity Fracture Additional Instructions: Make sure to follow up with Rey whatley for further evaluation Referrals: NO PRIMARY CARE PROVIDER (PCP) Prescriptions Hydrocodone Bit/Acetaminophen 5/325 MG ([place] 5/325 MG) 5 Mg/325 Mg Tablet 1 TAB PO Q6H PRN for pain, #14 TAB Prov: ÁNGEL AZAR NP 10/06/24 Signature Scribe Signature: f Attestation: The note accurately reflects work and decisions made by me.Ángel Tobin NP 10/06/24 16:15 ÁNGEL AZAR NP Oct 06, 2024 09:38
[2024-10-06] MEDS ORDERED: HYDR-3965 PO (10:35)
[2024-10-06 10:45] VITALS: BP 146/86; PULSE 84; RESP 18; TEMP 98.4; O2SAT 99
== END 2024-10-06 10:48 | disposition home or self-care (01) ==
LOC: ER 09:25
DX: S62.102A Fracture of unspecified carpal bone, left wrist, initial encounter for closed fracture (principal); E11.9 Type 2 diabetes mellitus without complications; I10 Essential (primary) hypertension; G43.909 Migraine, unspecified, not intractable, without status migrainosus; Z88.5 Allergy status to narcotic agent; X58.XXXA Exposure to other specified factors, initial encounter; Y93.89 Activity, other specified; Y92.89 Other specified places as the place of occurrence of the external cause; Y99.8 Other external cause status
CPT/HCPCS: 29125; 99283; A6449

== ENCOUNTER → 2024-10-27 | Day surgery (SDC) | payer MEDICAID ==
[~2024-10-27] VITALS: Ht 170.2 cm; Wt 75.0 kg
[~2024-10-27] MED LIST changes: +DOCU100C38 PO; -FERR-121 PO; +LAMO25TA5 PO; -LIDO15SO9 PO; +LIDOcaine 1%/PF 5ML 10 MG/ML VIAL ONE; +LIDOcaine 2% (20mg/ml) 5ml vial ONE; +LISI10TA27 PO; -LISI20TA28 PO; -METH-603 PO; +MULT-1085 PO; +NAPR-1168 PO; -ONDA-245 PO; +ROPIVAcaine 0.5% (5mg/ml) 30ml vial ONE; +ceFAZolin 2gm in dextrose, iso 50 ML IV ONE; +clindamycin 600mg/D5W 50ml 50 ML IV ONE; +dexamethasone sod phosphate 4mg/ml inj. ONE; +enalaprilat 1.25mg/ml 2ml vial IV PRN; +fentaNYL/PF 50MCG/1 ML 2ML syringe ONE; +labetalol 20mg/4ml (5mg/ml) syringe IV PRN; +meperidine/PF 25mg/ml syringe IV PRN; +midazolam 1 mg/ML 2ml injection ONE; +morphine 2 MG/ML inj. syringe IV PRN; +morphine 4 MG/ML inj SYRINge IV PRN; +ondansetron/PF 4mg/2ml inj IV PRN; +ondansetron/PF 4mg/2ml inj ONE; +proCHLORperazine 10 MG/2 ml inj IV PRN; +propofol inj 20 ML IV ONE; +ringers solution, lacted 1,000 ML IV SCH; +sevoflurane 250ml liquid IH ONE
[2024-10-27 09:20] VITALS: BP 112/52; PULSE 60; RESP 16; TEMP 97.7; O2SAT 96
[2024-10-27] MEDS: cefazolin 2gm/D5W 100mL 100 ML IV SCH (09:40)
--- NOTE | 2024-10-27 09:40 | ELECTROCARDIOGRAPH REPORT ---
[facility] Test Date: 2024-10-27 Test Time: 09:36:32 Pat Name: ETHAN AVILES Department: [facility] Patient ID: [facility]-[id number] Room: Gender: F Fire Control Technician: DANIEL : 1960 Requested By: WASHINGTON HALLMAN Order Number: [id number] Reading MD: Dr. RABIA Sylvester Measurements Intervals [place] Rate: 63 P: 70 [place]: 172 QRS: 48 QRSD: 106 T: 44 QT: 415 QTc: 425 Interpretive Statements Sinus rhythm Electronically Signed On 10-27-2024 19:13:[address] RABIA Sylvester Please click the below link to view image of tracing.
[2024-10-27] MEDS: ringers solution, lacted 1,000 ML IV SCH (09:55)
[2024-10-27] MEDS: famotidine 20mg tablet PO ONE (09:55)
[2024-10-27 10:19] LABS: ISTAT CREATININE 0.7 mg/dL (0.6-1.1); ISTAT HGB 11.6 g/dl (12.0-16.0); ISTAT IONIZED CALCIUM 1.24 mmol/L (1.03-1.32); ISTAT K 4.3 mmol/L (3.5-5.1); POC BUN/CREATININE RATIO 28.6 (6.6-38.0)
--- NOTE | 2024-10-27 12:10 | ANESTHESIA RECORDS ---
Nerve Block Providers to ~ Diagnosis: Nerve Block requested by: WASHINGTON HALLMAN Jr., MD Neuraxial/Peripheral Nerve Block requested for Post-operative analgesia by Melissa kuhn DIAGNOSIS: Post-operative pain. (Body Area) Shoulder: [ ] Arm: [ ] Hand: [ Lt forearm & Wrist ] Hip: [ ] Knee: [ ] Ankle: [ ] Foot: [ ] Leg: [ ] Abdomen: [ ] Other: [ ] Post-operative pain expected to be/is inadequately managed by oral or IV medicines. Regional anesthetic expected to facilitate rehabilitation and/or discharge from facility. Other:[ _] Procedure Performed: Axillary: Left Time out Done?: Yes Time of Time out: 11:10 Procedure Details: PROCEDURE DETAILS: Risks, benefits and alternatives explained Informed consent obtained, and patient wishes to proceed Conscious sedation with indicated monitors Patient positioned, pertinent anatomy defined, sterile technique used Needle used: [ x] 3 1/8 inch Stimuplex Ultra 22ga [ ] 4 inch Stimuplex Ultra 20ga [ ] 6 inch Stimuplex Ultra 20ga [ ] 6 inch, Quikbloc over the needle catheter set 20ga [ ] 4 inch Quikbloc over the needle catheter set 20ga [ ]Other: [ ] Loss of twitch @ [ 0.4 ]mA [x ] Single Injection [ ] Catheter Ultrasound Guidance Used: [x ] Yes [ ] No Attempts:[ once ] Medicines injected: [ ]Clonidine Amt:[ ] [ x ]Dexamethasone Amt:[ ] [x ]Ropivacaine Amt:[___0.5% 25 cc ] [ ]Bupivacaine Amt:[ ] [ x ]Lidocaine Amt:[____1.5% 10 cc ] [ ]Exparel 1.33%:[ ] [ ]Epinephrine Amt[ ] [ ]Other: [ ] Intermittent aspiration during local anesthetic administration No symptoms of intraneural or intravenous injection Patient tolerated procedure well Comments Left Axillary Block : Pt supine with left arm abducted and externally rotated. Ultrasound probe placed in the axilla and all the vascular structures and nerves identified. 1% xylo local. # 20 Stimuplex ultra 360 needle Block needle entered from Cranial to caudad below the axillary artery and 10 cc of local anesthetic mixture injected to block the Radial nerve. Needle advanced above the artery and local anesthetic injected around Median and ulnar nerves. ( 15 ccs)Probe moved distally and Musculo cutaneous nerve was identified also was blocked ( 5 ccs). Meaningful conversation throughout. No Pain or discomfort during injection. Pt tolerated procedure well. CACHORRO TODD MD October 27, 2024 12:10
[2024-10-27 12:28] VITALS: BP 139/78; PULSE 75; RESP 16; O2SAT 97
[2024-10-27 12:40] VITALS: BP 127/74; PULSE 73; RESP 12; O2SAT 98
[2024-10-27 12:50] VITALS: BP 129/77; PULSE 68; RESP 14; O2SAT 95
[2024-10-27] MEDS: acetaminophen 1,000mg/100ml IV 100 ML IV SCH (12:51)
[2024-10-27 13:20] VITALS: BP 130/72; PULSE 79; RESP 15; O2SAT 95
[2024-10-27 13:30] VITALS: BP 128/76; PULSE 67; RESP 14; O2SAT 94
--- NOTE | 2024-10-27 13:32 | OPERATIVE REPORT ---
Operative Report Providers to ~ Date of Procedure: October 27, 2024 Pre-Operative Diagnosis: Closed intra-articular distal radius fracture left wrist Post-Operative Diagnosis SAME as PRE-Op Procedure Performed Open reduction internal fixation of left distal radius fracture 3+ fragments Surgeon: Logan Sharma MD Timber Setter None Anesthesiologist: Bladimir Randhawa Type of Anesthesia: Regional Findings: See dictation below Prosthetics\Implants used: Bone Bridge distal radius plate and screws Estimated Blood Loss: None Specimen Removed: None Description of Procedure: The patient is a 64-year-old woman who on September 26, 2024 suffered a fall and a distal radius fracture. She presented late and x-rays showed a displaced distal radius fracture with dorsal angulation and comminution. Surgery is indicated to prevent deformity. Risks and benefits were discussed with the patient prior to surgery. Some of the risks include but are not limited to infection, bleeding, nerve or vessel or tendon damage, hardware pain and stiffness. She agreed to proceed. She was brought to the operating room where the regional block was given by anesthesia. She was then given a general anesthetic in the left arm was prepped and draped in usual manner. A tourniquet was placed on the upper arm and inflated 250 mm of mercury. An incision was made along the flexor carpi radialis with the interval between it and the radial artery. The pronator was elevated off the distal radius and the fracture fragments were identified. Despite the passage of time we are able to manipulate the fracture fragments under fluoro guidance. The plate was then affixed provisionally and positioned appropriately. It was then screwed down proximally. With the distal fragments were then reduced to the plate and four locking screws were placed. This reduced the dorsal angulation and care was taken not to penetrate the joint with the screws. Final fluoro imaging showed good position of the hardware and reduction of the fracture. Incision was irrigated and closed in layers. A sterile dressing was applied along with a splint. The tourniquet was released the hand perfused well. The patient was awakened and taken to the recovery room in stable condition and tolerated the procedure well. LOGAN SHARMA Jr., MD October 27, 2024 13:32
== END | disposition home or self-care (01) ==
LOC: PAS 08:59
PROVIDERS: ATTEND Orthopaedic Surgery Hand Surgery
DX: S52.572A Other intraarticular fracture of lower end of left radius, initial encounter for closed fracture (principal); K21.9 Gastro-esophageal reflux disease without esophagitis; F41.9 Anxiety disorder, unspecified; F31.9 Bipolar disorder, unspecified; I10 Essential (primary) hypertension; G47.00 Insomnia, unspecified; X58.XXXA Exposure to other specified factors, initial encounter; Y93.89 Activity, other specified; Y92.89 Other specified places as the place of occurrence of the external cause; Y99.8 Other external cause status; Z88.6 Allergy status to analgesic agent; M47.816 Spondylosis without myelopathy or radiculopathy, lumbar region; G89.18 Other acute postprocedural pain; Z79.899 Other long term (current) drug therapy; Z98.51 Tubal ligation status; Z87.891 Personal history of nicotine dependence
CPT/HCPCS: 25609; 64417; 80047; 93005; A6222; C1713; J0131; J1100; J2003; J2250; J2405; J2704; J2795; J3010; J3490; J7030; J7120; Z7506; Z7508; Z7512; A4215; A4565; A4618; A6449; A7000